=== PATIENT | female | born 1960 | race African-American/Black ===

== ENCOUNTER 2019-01-24 13:16 | Inpatient (IN) | payer BC ==
[2019-01-24 14:49] VITALS: BMI 26.9
--- NOTE | 2019-01-24 17:07 | HP ---
CIWA Score Nausea/Vomitin-No Nausea/No Vomiting Muscle Tremors: None Anxiety: 1-Mildly Anxious Agitation: 1-Slight > Activity Paroxysmal Sweats: No Perspiration Orientation: 0-Oriented Tacttile Disturbances: 1-Very Mild Itch/Numbness Auditory Disturbances: 0-None Visual Disturbances: 0-None Headache: 0-None Present CIWA-Ar Total Score: 3 - Admission Criteria OASAS Guidelines: Admission for Medically Managed Detox: Requires at least one of the followin. CIWA greater than 12 2. Seizures within the past 24 hours 3. Delirium tremens within the past 24 hours 4. Hallucinations within the past 24 hours 5. Acute intervention needed for co occurring medical disorder 6. Acute intervention needed for co occurring psychiatric disorder 7. Severe withdrawal that cannot be handled at a lower level of care (continued vomiting, continued diarrhea, abnormal vital signs) requiring intravenous medication and/or fluids 8. Admitting History and Physical - Past Medical History ...LMP: 09/11/03 - Smoking History Smoking history: Current every day smoker Have you smoked in the past 12 months: Yes Aproximately how many cigarettes per day: 4 Admission ROS [facility] Allergies/Adverse Reactions: Allergies Allergy/AdvReac Type Severity Reaction Status Date / Time No Known Drug Allergies Allergy Verified 01/24/19 14:42 lactose AdvReac heartburn Verified 01/24/19 14:42 NKDA Allergy Uncoded 01/24/19 14:42 History of Present Illness: 58 year old female with tuberculosis exposure, eczema, hypertension a history of alcohol abuse here for detox. Last here in September of this year. No legal trouble Alcohol use: 6 pack of 24 oz beer every day, no liquor. Last drink was this morning (4 drinks); never blacked out from drinking. Drinking for over 40 years. Never had a seizure. Does not become sick when she stops drinks. 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 - Ebola screening Have you traveled outside of the country in the last 21 days: No Have you had contact with anyone from an Ebola affected area: No Patient History - Patient Medical History Hx Anemia: No Hx Asthma: No Hx Chronic Obstructive Pulmonary Disease (COPD): No Hx Cancer: No Hx Cardiac Disorders: No Hx Congestive Heart Failure: No Hx Hypertension: Yes Hx Hypercholesterolemia: No Hx Pacemaker: No HX Cerebrovascular Accident: No Hx Seizures: No Hx Dementia: No Hx Diabetes: No Hx Gastrointestinal Disorders: Yes (acid reflux) Hx Liver Disease: No Hx Genitourinary Disorders: No Hx Sexually Transmitted Disorders: Yes (syphilis) Hx Renal Disease (ESRD): No Hx Thyroid Disease: No Hx Human Immunodeficiency Virus (HIV): No (neg 3 weeks ago) Hx Hepatitis C: No Hx Depression: Yes Hx Suicide Attempt: No Hx Schizophrenia: No - Patient Surgical History Past Surgical History: No Hx Neurologic Surgery: No Hx Cataract Extraction: No Hx Cardiac Surgery: No Hx Lung Surgery: No Hx Breast Surgery: No Hx Breast Biopsy: No Hx Abdominal Surgery: No Hx Appendectomy: No Hx Cholecystectomy: No Hx Genitourinary Surgery: No Hx Section: No Hx Orthopedic Surgery: No Anesthesia Reaction: No - Reproductive History Last Menstrual Period: 09/11/03 - Smoking Cessation Smoking history: Current every day smoker Have you smoked in the past 12 months: Yes Aproximately how many cigarettes per day: 4 Hx Chewing Tobacco Use: No - Substances abused Alcohol Substance route: Oral Frequency: Daily Amount used: 6PACK- 16OZ Age of first use: 14 Date of last use: 01/24/19 Admission Physical Exam S - Vital Signs Vital Signs: Vital Signs - 24 hr 01/24/19 14:41 Temperature 98 F Pulse Rate 98 H Respiratory 18 Rate Blood Pressure 121/77 - Physical General Appearance: Yes: Disheveled HEENTM: Yes: Normal ENT Inspection, Normocephalic Respiratory: Yes: Chest Non-Tender, Lungs Clear, Normal Breath Sounds Neck: Yes: Within Normal Limits Breast: Yes: Within Normal Limits Cardiology: Yes: Regular Rhythm, Regular Rate Abdominal: Yes: Normal Bowel Sounds, Non Tender, Flat, Soft Musculoskeletal: Yes: full range of Motion, Gait Steady Extremities: Yes: Normal Capillary Refill, Normal Inspection, Normal Range of Motion 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
[2019-01-24] MEDS ORDERED: MENTHOL/PHENOL 1 EACH UD MM PRN (17:34)
[2019-01-24] MEDS ORDERED: MAGNESIUM HYDROX 2400MG/30ML ORAL SUSPENSION 30 ML CUP PO PRN (17:34)
[2019-01-24] MEDS ORDERED: MAGNESIUM CITRATE 300 ML BOTTLE PO PRN (17:34)
[2019-01-24] MEDS ORDERED: diazePAM 5 MG TABLET PO PRN (17:34)
[2019-01-24] MEDS ORDERED: BISMUTH SUBSALICYLATE 524 MG/30 ML UD PO PRN (17:34)
[2019-01-24] MEDS ORDERED: IBUPROFEN 400 MG TABLET (FP) PO PRN (17:34)
[2019-01-24] MEDS ORDERED: METHOCARBAMOL 500 MG TABLET PO PRN (17:34)
[2019-01-24] MEDS ORDERED: hydrOXYzine PAMOATE 25 MG CAPSULE (FP) PO PRN (17:34)
[2019-01-24] MEDS ORDERED: MAG HYDROX/AL HYDROX/SIMETH 30 ML UNIT-DOSE CUP PO PRN (17:34)
[2019-01-24] MEDS ORDERED: ACETAMINOPHEN 325 MG TABLET (FP) PO PRN ×2 (17:34)
--- NOTE | 2019-01-24 18:39 | PN ---
Teaching Attending Note Name of Resident: Isaiah Wilson ATTENDING PHYSICIAN STATEMENT I saw and evaluated the patient. I reviewed the resident's note and discussed the case with the resident. I agree with the resident's findings and plan as documented. SUBJECTIVE: 58 year old female here for etoh use , reports 6 x 24 oz beer x 40 years , latest use this morning , symptoms as above . cocaine : latest use 3 weeks ago PMHX : TB exposure , eczema, hypertension , bipolar d/o , SAD on meds claims side-effects from depakote , reports compliance w/ meds, did not bring tobacco : daily Allergies: lactose (intolerant) Family mother 2003 (unknown cause), sister (2003, crack use) , 2 children all healthy, does not see them; from Living Situation: lives in senior care (~2 years) OBJECTIVE: wnwd , symptoms as above , CIWA- 3 Vital Signs - 24 hr 01/24/19 14:41 Temperature 98 F Pulse Rate 98 H Respiratory 18 Rate Blood Pressure 121/77 ASSESSMENT AND PLAN: Alcohol dependence - Valium detox . Psychiatry consult
[2019-01-24] MEDS: ASPIRIN 81 MG CHEWABLE TABLETS PO SCH (18:51)
[2019-01-24] MEDS ORDERED: MELATONIN 5 MG TABLETS PO PRN (22:00)
[2019-01-24] MEDS: THIAMINE HCL 100 MG TABLET (FP) PO SCH (23:01)
[2019-01-24] MEDS: TRIAMCINOLONE ACET 0.1% OINT 15 GM TUBE TP SCH (23:03)
[2019-01-24] MEDS: diazePAM 5 MG TABLET PO SCH (23:03)
[2019-01-25] MEDS: TRIAMCINOLONE ACET 0.1% OINT 15 GM TUBE TP SCH ×3 (05:38→22:00)
[2019-01-25] MEDS: diazePAM 5 MG TABLET PO SCH ×3 (05:39→21:58)
[2019-01-25] MEDS: LISINOPRIL 20 MG TABLET (FP) PO SCH (09:16)
[2019-01-25] MEDS: HYDROCHLOROTHIAZIDE 25 MG TABLET (FP) PO SCH (09:16)
--- NOTE | 2019-01-25 09:32 | CONSULT ---
[facility] Psychiatric Consult - Data Date of interview: 01/25/19 Admission source: Self-referred Identifying data: Ms Ferreira is a 58 years old Black female, mother of 2 children, unemployed receiving SSI, homeless seeking detox treatment for alcohol and cocaine Substance Abuse History: Reports alcohol and cocaine use. Refer to addiction counselor's summary for further information Medical History: Signicant for hypertension, GERD, eczema, history of treatment for PPD+ and syphilis. Smokes 4 cigarettes daily Psychiatric History: Patient came into the office for interview. She said that she did not want to discuss her psychiatric issues with financial writer. She said that is between her and her psychiatrist. She said she had issues with a worker at her housing place and that is what she is willing to discuss. When told that financial writer duty is mostly to assess her psychiatrically, she got up and left the office
[2019-01-25] MEDS ORDERED: PATIENT'S OWN MEDICATION (NON-FORMULARY) (Lisinopril/Hydrochlorothiazide [Lisinopril-Hctz PO SCH (10:00)
[2019-01-25] MEDS: ASPIRIN 81 MG CHEWABLE TABLETS PO SCH (10:18)
[2019-01-25] MEDS: PRENATAL VITAMINS W/ FOLIC ACID TABLET (FP) PO SCH (10:19)
[2019-01-25 12:09] LABS: HEMATOCRIT 43.1 % (32.4-45.2); HEMOGLOBIN 14.2 GM/dL (10.7-15.3); MCH 30.1 pg (25.7-33.7); MEAN CELL VOLUME 91.3 fl (80-96); MEAN PLT VOLUME 7.2 fl (7.5-11.1); PLATELET COUNT 286 K/MM3 (134-434); RBC 4.72 M/mm3 (3.60-5.2); RDW 15.2 % (11.6-15.6); WHITE BLOOD COUNT 7.8 K/mm3 (4.0-10.0)
[2019-01-25 12:28] LABS: ALBUMIN 3.6 g/dl (3.4-5.0); BLOOD UREA NITROGEN 21.3 mg/dL (7-18); CALCIUM 9.1 mg/dL (8.5-10.1); CREATININE 1.1 mg/dL (0.55-1.3); POTASSIUM 4.3 mmol/L (3.5-5.1); TOT PROT 7.4 g/dl (6.4-8.2)
--- NOTE | 2019-01-25 13:58 | PN ---
S CIWA - CIWA Score Nausea/Vomitin-No Nausea/No Vomiting Muscle Tremors: 2 Anxiety: 1-Mildly Anxious Agitation: 1-Slight > Activity Paroxysmal Sweats: No Perspiration Orientation: 0-Oriented Tacttile Disturbances: 0-None Auditory Disturbances: 0-None Visual Disturbances: 0-None Headache: 0-None Present CIWA-Ar Total Score: 4 [facility] Progress Note (SOAP) Subjective: anxiety dry skin Objective: 01/25/19 13:57 Vital Signs Temperature 97.9 F 01/25/19 13:11 Pulse Rate 72 01/25/19 13:11 Respiratory Rate 18 01/25/19 13:11 Blood Pressure 145/78 01/25/19 13:11 O2 Sat by Pulse Oximetry (%) Laboratory Tests 01/25/19 01/25/19 08:20 08:20 WBC 7.8 RBC 4.72 Hgb 14.2 Hct 43.1 MCV 91.3 MCH 30.1 MCHC 33.0 RDW 15.2 Plt Count 286 MPV 7.2 L Sodium 139 Potassium 4.3 Chloride 101 Carbon Dioxide 31 Anion Gap 7 L BUN 21.3 H Creatinine 1.1 Est GFR (CKD-EPI)AfAm 64.09 Est GFR (CKD-EPI)NonAf 55.30 Random Glucose 134 H Calcium 9.1 Total Bilirubin 1.0 AST 31 ALT 20 Alkaline Phosphatase 104 Total Protein 7.4 Albumin 3.6 labs noted aaox3 ambulating no acute distress Assessment: 01/25/19 13:57 mild withdrawals Plan: continue detox increase fluids d/c in am
[2019-01-25] MEDS: THIAMINE HCL 100 MG TABLET (FP) PO SCH (21:58)
[2019-01-26] MEDS: TRIAMCINOLONE ACET 0.1% OINT 15 GM TUBE TP SCH ×3 (05:53→23:57)
[2019-01-26] MEDS ORDERED: diazePAM 5 MG TABLET PO ONE (06:00)
[2019-01-26] MEDS ORDERED: COLLOIDAL OATMEAL 1 BAR EACH TP PRN (06:49)
--- NOTE | 2019-01-26 09:24 | DS ---
[facility] Detox Discharge Summary Admission Date: 01/24/19 Discharge Date: 01/26/19 - History Present History: Alcohol Dependence, Cocaine Dependence - Physical Exam Results Vital Signs: Vital Signs Temperature 97.9 F 01/26/19 07:11 Pulse Rate 69 01/26/19 07:11 Respiratory Rate 18 01/26/19 07:11 Blood Pressure 139/89 01/26/19 07:11 O2 Sat by Pulse Oximetry (%) Pertinent Admission Physical Exam Findings: Vital Signs Temperature 97.9 F 01/26/19 07:11 Pulse Rate 69 01/26/19 07:11 Respiratory Rate 18 01/26/19 07:11 Blood Pressure 139/89 01/26/19 07:11 O2 Sat by Pulse Oximetry (%) Laboratory Tests 01/25/19 01/25/19 01/25/19 08:20 08:20 09:15 WBC 7.8 RBC 4.72 Hgb 14.2 Hct 43.1 MCV 91.3 MCH 30.1 MCHC 33.0 RDW 15.2 Plt Count 286 MPV 7.2 L Sodium 139 Potassium 4.3 Chloride 101 Carbon Dioxide 31 Anion Gap 7 L BUN 21.3 H Creatinine 1.1 Est GFR (CKD-EPI)AfAm 64.09 Est GFR (CKD-EPI)NonAf 55.30 Random Glucose 134 H Calcium 9.1 Total Bilirubin 1.0 AST 31 ALT 20 Alkaline Phosphatase 104 Total Protein 7.4 Albumin 3.6 HIV 1&2 Antibody Screen Negative HIV P24 Antigen Negative pt is feeling better and ready for rehab - Treatment Hospital Course: Detox Protocol Followed, Detoxed Safely, Responded well, Discharged Condition Good, Rehab Referral Accepted Patient has Accepted a Rehab Referral to: pt referred to inpatient rehab [facility] - Medication Discharge Medications: Ambulatory Orders Lisinopril/Hydrochlorothiazide [Lisinopril-Hctz 20-25 mg Tab] 1 each PO DAILY Aspirin [ASA -] 81 mg PO DAILY 01/24/19 Triamcinolone 0.1% Ointment [Aristocort 0.1% Ointment -] 1 applic TP TID - Diagnosis (1) Alcohol induced sleep disorders Current Visit: No Status: Acute (2) Alcohol withdrawal Current Visit: No Status: Acute (3) Alcohol-induced anxiety disorder Current Visit: No Status: Acute (4) Bipolar 1 disorder with moderate nadine Current Visit: No Status: Acute (5) Cocaine dependence Current Visit: No Status: Acute (6) Nicotine dependence Current Visit: No Status: Acute (7) Depression Current Visit: No Status: Chronic (8) Hypertension Current Visit: No Status: Chronic (9) Drug-induced mood disorder Current Visit: No Status: Suspected - AMA Did Patient Leave Against Medical Advice: No
[2019-01-26] MEDS: LISINOPRIL 20 MG TABLET (FP) PO SCH (10:55)
[2019-01-26] MEDS: HYDROCHLOROTHIAZIDE 25 MG TABLET (FP) PO SCH (10:55)
[2019-01-26] MEDS: PRENATAL VITAMINS W/ FOLIC ACID TABLET (FP) PO SCH (10:55)
[2019-01-26] MEDS: ASPIRIN 81 MG CHEWABLE TABLETS PO SCH (10:56)
--- NOTE | 2019-01-26 11:54 | PN ---
[facility] Progress Note Note: pt has high BP 175/99 and will be at risk of relapse if she leave without having an aftercare set up. Pt will be d/c tomorrow and will go to inpatient rehab.
[2019-01-26 18:25] VITALS: TEMP 98.1
[2019-01-26] MEDS: THIAMINE HCL 100 MG TABLET (FP) PO SCH (23:57)
[2019-01-27] MEDS: TRIAMCINOLONE ACET 0.1% OINT 15 GM TUBE TP SCH ×2 (05:53→13:30)
[2019-01-27 09:39] VITALS: BP 166/88; PULSE 69
[2019-01-27] MEDS: HYDROCHLOROTHIAZIDE 25 MG TABLET (FP) PO SCH (10:25)
[2019-01-27] MEDS: ASPIRIN 81 MG CHEWABLE TABLETS PO SCH (10:25)
[2019-01-27] MEDS: PRENATAL VITAMINS W/ FOLIC ACID TABLET (FP) PO SCH (10:25)
[2019-01-27] MEDS: LISINOPRIL 20 MG TABLET (FP) PO SCH (10:25)
--- NOTE | 2019-01-27 13:18 | DS ---
[facility] Detox Discharge Summary Admission Date: 01/24/19 Discharge Date: 01/27/19 - History Present History: Alcohol Dependence - Physical Exam Results Vital Signs: Vital Signs Temperature 98.1 F 01/27/19 09:37 Pulse Rate 69 01/27/19 09:37 Respiratory Rate 18 01/27/19 09:37 Blood Pressure 166/88 01/27/19 09:37 O2 Sat by Pulse Oximetry (%) - Treatment Hospital Course: Detox Protocol Followed, Detoxed Safely, Responded well, Discharged Condition Good, Rehab Referral Accepted - Medication Discharge Medications: Ambulatory Orders Lisinopril/Hydrochlorothiazide [Lisinopril-Hctz 20-25 mg Tab] 1 each PO DAILY Aspirin [ASA -] 81 mg PO DAILY 01/24/19 Triamcinolone 0.1% Ointment [Aristocort 0.1% Ointment -] 1 applic TP TID - Diagnosis (1) Alcohol induced sleep disorders Current Visit: No Status: Acute (2) Alcohol withdrawal Current Visit: No Status: Acute (3) Alcohol-induced anxiety disorder Current Visit: No Status: Acute (4) Bipolar 1 disorder with moderate nadine Current Visit: No Status: Acute (5) Cocaine dependence Current Visit: No Status: Acute (6) Nicotine dependence Current Visit: Yes Status: Acute Qualifiers: Nicotine product type: cigarettes Substance use status: uncomplicated Qualified Code(s): F17.210 - Nicotine dependence, cigarettes, uncomplicated (7) Depression Current Visit: No Status: Chronic (8) Hypertension Current Visit: No Status: Chronic (9) Drug-induced mood disorder Current Visit: No Status: Suspected - AMA Did Patient Leave Against Medical Advice: No
== END 2019-01-27 13:56 | disposition home or self-care (01) | DRG 774 ==
LOC: YASAS 13:16 → Y6N 18:08
PROVIDERS: ADMIT Allergy & Immunology; ATTEND Allergy & Immunology
PROC: HZ2ZZZZ Detoxification Services for Substance Abuse Treatment (ICD-10-PCS; principal; 2019-01-24)
DX: F10.230 Alcohol dependence with withdrawal, uncomplicated (principal); F14.20 Cocaine dependence, uncomplicated; F17.210 Nicotine dependence, cigarettes, uncomplicated; F10.280 Alcohol dependence with alcohol-induced anxiety disorder; F10.282 Alcohol dependence with alcohol-induced sleep disorder; F19.24 Other psychoactive substance dependence with psychoactive substance-induced mood disorder; F32.9 Major depressive disorder, single episode, unspecified; F31.89 Other bipolar disorder; I10 Essential (primary) hypertension; K21.9 Gastro-esophageal reflux disease without esophagitis; L30.9 Dermatitis, unspecified; R76.11 Nonspecific reaction to tuberculin skin test without active tuberculosis; Z86.19 Personal history of other infectious and parasitic diseases; Z91.02 Food additives allergy status
CPT/HCPCS: 36415; 80053; 85027; 86593; 87389

== ENCOUNTER 2022-03-11 12:04 | Inpatient (IN) | payer BC ==
[2022-03-11 13:08] VITALS: BMI 34.4
[2022-03-11] MEDS ORDERED: ACETAMINOPHEN 325 MG TABLET (FP) PO PRN ×2 (15:00)
[2022-03-11] MEDS ORDERED: IBUPROFEN 600 MG TABLET (FP) PO PRN (15:00)
[2022-03-11] MEDS ORDERED: LOPERAMIDE HCL 2 MG CAPSULE PO PRN (15:00)
[2022-03-11] MEDS ORDERED: MAG HYDROX/AL HYDROX/SIMETH 30 ML UNIT-DOSE CUP PO PRN (15:00)
[2022-03-11] MEDS ORDERED: NICOTINE 10 MG CARTRIDGE (INHALER) IH PRN (15:00)
[2022-03-11] MEDS ORDERED: MAGNESIUM HYDROX 2400MG/30ML ORAL SUSPENSION 30 ML CUP PO PRN (15:00)
[2022-03-11] MEDS ORDERED: IBUPROFEN 400 MG TABLET (FP) PO PRN (15:00)
[2022-03-11] MEDS ORDERED: DICYCLOMINE HCL 10 MG CAPSULE PO PRN (15:00)
[2022-03-11] MEDS ORDERED: NALOXONE HCL (KLOXXADO) 8 MG SPRAY NS PRN (15:00)
[2022-03-11] MEDS ORDERED: BISMUTH SUBSALICYLATE 524 MG/30 ML PO PRN (15:00)
[2022-03-11] MEDS ORDERED: POLYETHYLENE GLYCOL (HEALTHYLAX) 3350 17 GM PACKET PO PRN (15:00)
[2022-03-11] MEDS ORDERED: chlordiazePOXIDE HCL 25 MG CAPSULE PO PRN (15:00)
[2022-03-11 16:47] LABS: HEMATOCRIT 40.7 % (32.4-45.2); HEMOGLOBIN 13.4 GM/dL (10.7-15.3); MCH 28.6 pg (25.7-33.7); MCHC 32.9 g/dl (32.0-36.0); MEAN PLT VOLUME 7.4 fl (7.5-11.1); PLATELET COUNT 291 10^3/uL (134-434); RBC 4.68 M/mm3 (3.60-5.2); RDW 14.9 % (11.6-15.6); WHITE BLOOD COUNT 7.3 K/mm3 (4.0-10.0)
[2022-03-11 16:49] LABS: CALCIUM 9.2 mg/dL (8.5-10.1)
[2022-03-11 16:50] LABS: ALBUMIN 3.5 g/dl (3.4-5.0); BLOOD UREA NITROGEN 24.5 mg/dL (7-18)
[2022-03-11 16:53] LABS: CREATININE 1.1 mg/dL (0.55-1.3)
[2022-03-11 16:54] LABS: TOT PROT 7.1 g/dl (6.4-8.2)
[2022-03-11] MEDS: PRENATAL VITAMINS W/ FOLIC ACID TABLET (FP) PO SCH (17:22)
[2022-03-11] MEDS: chlordiazePOXIDE HCL 25 MG CAPSULE PO SCH ×2 (17:24→22:54)
[2022-03-11] MEDS: MELATONIN 5 MG TABLETS PO SCH (22:54)
[2022-03-11] MEDS: METHOCARBAMOL 500 MG TABLET PO PRN (22:54)
[2022-03-11] MEDS: THIAMINE HCL 100 MG TABLET (FP) PO SCH (22:54)
[2022-03-12] MEDS: chlordiazePOXIDE HCL 25 MG CAPSULE PO SCH ×3 (05:40→17:38)
[2022-03-12] MEDS: ONDANSETRON *ODT* 4 MG TABLET SL PRN ×2 (05:41→13:01)
[2022-03-12] MEDS: METHOCARBAMOL 500 MG TABLET PO PRN (10:05)
[2022-03-12] MEDS: PRENATAL VITAMINS W/ FOLIC ACID TABLET (FP) PO SCH (10:05)
[2022-03-12] MEDS: COLLOIDAL OATMEAL 1 BAR EACH TP PRN (12:25)
[2022-03-13] MEDS: MELATONIN 5 MG TABLETS PO SCH ×2 (00:14→22:23)
[2022-03-13] MEDS: THIAMINE HCL 100 MG TABLET (FP) PO SCH ×2 (00:14→22:22)
[2022-03-13] MEDS: chlordiazePOXIDE HCL 25 MG CAPSULE PO SCH ×4 (00:15→17:35)
[2022-03-13] MEDS: ASPIRIN 81 MG CHEWABLE TABLETS PO SCH (10:35)
[2022-03-13] MEDS: LISINOPRIL 20 MG TABLET PO SCH (10:35)
[2022-03-13] MEDS: PRENATAL VITAMINS W/ FOLIC ACID TABLET (FP) PO SCH (10:35)
[2022-03-13] MEDS: HYDROCHLOROTHIAZIDE 12.5 MG CAPSULE (FP) PO SCH (10:51)
[2022-03-13] MEDS: SELENIUM SULFIDE 2.25% 180 ML SHAMPOO TP SCH (12:19)
[2022-03-13] MEDS: METHOCARBAMOL 500 MG TABLET PO PRN ×2 (12:51→22:24)
[2022-03-13] MEDS: hydrOXYzine PAMOATE 25 MG CAPSULE (FP) PO PRN (12:51)
[2022-03-13] MEDS: TRIAMCINOLONE ACET 0.1% OINT 15 GM TUBE TP SCH ×2 (14:53→22:23)
[2022-03-13] MEDS ORDERED: cloNIDine HCL 0.1 MG TABLET PO ONE (22:00)
[2022-03-14] MEDS ORDERED: chlordiazePOXIDE HCL 10 MG CAPSULE PO PRN
[2022-03-14] MEDS: chlordiazePOXIDE HCL 25 MG CAPSULE PO SCH (00:14)
[2022-03-14] MEDS: chlordiazePOXIDE HCL 10 MG CAPSULE PO SCH ×4 (06:13→22:18)
[2022-03-14] MEDS: TRIAMCINOLONE ACET 0.1% OINT 15 GM TUBE TP SCH ×3 (06:14→22:18)
[2022-03-14] MEDS: PRENATAL VITAMINS W/ FOLIC ACID TABLET (FP) PO SCH (10:29)
[2022-03-14] MEDS: hydrOXYzine PAMOATE 25 MG CAPSULE (FP) PO PRN (10:29)
[2022-03-14] MEDS: ASPIRIN 81 MG CHEWABLE TABLETS PO SCH (10:29)
[2022-03-14] MEDS: HYDROCHLOROTHIAZIDE 12.5 MG CAPSULE (FP) PO SCH (10:29)
[2022-03-14] MEDS: LISINOPRIL 20 MG TABLET PO SCH (10:29)
[2022-03-14] MEDS: METHOCARBAMOL 500 MG TABLET PO PRN (10:29)
[2022-03-14] MEDS: SELENIUM SULFIDE 2.25% 180 ML SHAMPOO TP SCH (10:32)
[2022-03-14] MEDS: BENZOCAINE/MENTHOL (CHLORASEPTIC ) LOZENGE MM PRN (19:50)
[2022-03-14] MEDS: THIAMINE HCL 100 MG TABLET (FP) PO SCH (22:18)
[2022-03-14] MEDS: MELATONIN 5 MG TABLETS PO SCH (22:18)
[2022-03-15] MEDS: chlordiazePOXIDE HCL 10 MG CAPSULE PO SCH ×2 (05:23→17:51)
[2022-03-15] MEDS: hydrOXYzine PAMOATE 25 MG CAPSULE (FP) PO PRN ×2 (05:23→23:36)
[2022-03-15] MEDS: METHOCARBAMOL 500 MG TABLET PO PRN (05:23)
[2022-03-15] MEDS: TRIAMCINOLONE ACET 0.1% OINT 15 GM TUBE TP SCH ×3 (05:39→23:28)
[2022-03-15] MEDS: LISINOPRIL 20 MG TABLET PO SCH (10:12)
[2022-03-15] MEDS: PRENATAL VITAMINS W/ FOLIC ACID TABLET (FP) PO SCH (10:12)
[2022-03-15] MEDS: ASPIRIN 81 MG CHEWABLE TABLETS PO SCH (10:12)
[2022-03-15] MEDS: HYDROCHLOROTHIAZIDE 12.5 MG CAPSULE (FP) PO SCH (10:12)
[2022-03-15] MEDS: SELENIUM SULFIDE 2.25% 180 ML SHAMPOO TP SCH (10:13)
[2022-03-15] MEDS: BENZOCAINE/MENTHOL (CHLORASEPTIC ) LOZENGE MM PRN (10:14)
[2022-03-15] MEDS: COLLOIDAL OATMEAL 1 BAR EACH TP PRN (13:57)
[2022-03-15] MEDS: MELATONIN 5 MG TABLETS PO SCH (23:28)
[2022-03-15] MEDS: THIAMINE HCL 100 MG TABLET (FP) PO SCH (23:28)
[2022-03-16] MEDS ORDERED: chlordiazePOXIDE HCL 10 MG CAPSULE PO ONE (05:00)
[2022-03-16] MEDS: TRIAMCINOLONE ACET 0.1% OINT 15 GM TUBE TP SCH (05:42)
[2022-03-16 06:13] VITALS: BP 129/71; PULSE 97; RESP 18; TEMP 97.1
== END 2022-03-16 09:13 | disposition home or self-care (01) | DRG 774 ==
LOC: YASAS 12:04 → Y6N 15:06
PROVIDERS: ADMIT Allergy & Immunology; ATTEND Surgery
PROC: HZ2ZZZZ Detoxification Services for Substance Abuse Treatment (ICD-10-PCS; principal; 2022-03-11)
DX: F10.230 Alcohol dependence with withdrawal, uncomplicated (principal); F14.20 Cocaine dependence, uncomplicated; F17.210 Nicotine dependence, cigarettes, uncomplicated; F19.282 Other psychoactive substance dependence with psychoactive substance-induced sleep disorder; F25.9 Schizoaffective disorder, unspecified; E78.5 Hyperlipidemia, unspecified; I10 Essential (primary) hypertension; K21.9 Gastro-esophageal reflux disease without esophagitis; L30.9 Dermatitis, unspecified; L21.9 Seborrheic dermatitis, unspecified; M19.071 Primary osteoarthritis, right ankle and foot; M25.471 Effusion, right ankle; R05.8 Other specified cough; Z62.810 Personal history of physical and sexual abuse in childhood; Z86.19 Personal history of other infectious and parasitic diseases; Z91.011 Allergy to milk products
CPT/HCPCS: 36415; 80053; 85027; 86593; 86780; C9803-CS; Q0162; U0003; U0005

== ENCOUNTER 2023-11-25 10:38 | Inpatient (IN) | payer BC ==
[2023-11-25 11:05] VITALS: BMI 27.1
[2023-11-25] MEDS ORDERED: LISINOPRIL 10 MG TABLET ONE (11:18)
[2023-11-25] MEDS ORDERED: HYDROCHLOROTHIAZIDE 12.5 MG CAPSULE (FP) ONE (11:19)
[2023-11-25] MEDS: LISINOPRIL 20 MG TABLET PO ONE (11:22)
[2023-11-25] MEDS: HYDROCHLOROTHIAZIDE 25 MG TABLET (FP) PO ONE (11:22)
[2023-11-25] MEDS ORDERED: NALOXONE HCL 0.4 MG/ML VIAL IM PRN (11:27)
[2023-11-25] MEDS ORDERED: MAG HYDROX/AL HYDROX/SIMETH 30 ML UNIT-DOSE CUP PO PRN (11:27)
[2023-11-25] MEDS ORDERED: NALOXONE (NARCAN) HCL 4 MG/0.1 ML SPRAY NS PRN (11:27)
[2023-11-25] MEDS ORDERED: MAGNESIUM HYDROX 2400MG/30ML ORAL SUSPENSION 30 ML CUP PO PRN (11:27)
[2023-11-25] MEDS ORDERED: LOPERAMIDE HCL 2 MG CAPSULE PO PRN (11:27)
[2023-11-25] MEDS ORDERED: DICYCLOMINE HCL 10 MG CAPSULE PO PRN (11:27)
[2023-11-25] MEDS ORDERED: ACETAMINOPHEN 325 MG TABLET (FP) PO PRN (11:27)
[2023-11-25] MEDS ORDERED: hydrOXYzine PAMOATE 25 MG CAPSULE (FP) PO PRN (11:27)
[2023-11-25] MEDS ORDERED: IBUPROFEN 400 MG TABLET (FP) PO PRN (11:27)
[2023-11-25] MEDS ORDERED: BISMUTH SUBSALICYLATE 524 MG/30 ML PO PRN (11:27)
[2023-11-25] MEDS ORDERED: IBUPROFEN 600 MG TABLET (FP) PO PRN (11:27)
[2023-11-25] MEDS ORDERED: POLYETHYLENE GLYCOL (HEALTHYLAX) 3350 17 GM PACKET PO PRN (11:27)
[2023-11-25] MEDS ORDERED: METHOCARBAMOL 500 MG TABLET PO PRN (11:27)
[2023-11-25] MEDS ORDERED: chlordiazePOXIDE HCL 25 MG CAPSULE PO PRN (11:33)
[2023-11-25] MEDS ORDERED: ALBUTEROL SO4 HFA INHALER IH PRN (11:37)
[2023-11-25] MEDS: METHYL SALICYLATE/MENTHOL 30 GM TUBE TP SCH (12:52)
[2023-11-25] MEDS: TRIAMCINOLONE ACET 0.1% OINT 15 GM TUBE TP SCH (13:00)
[2023-11-25] MEDS: ACAMPROSATE CALCIUM 333 MG TABLET.DR PO SCH (13:00)
[2023-11-25] MEDS: chlordiazePOXIDE HCL 25 MG CAPSULE PO SCH (17:09)
[2023-11-25] MEDS: amLODIPine BESYLATE 10 MG TABLET (FP) PO ONE (17:59)
[2023-11-25] MEDS: BENZOCAINE/MENTHOL (CHLORASEPTIC ) LOZENGE MM PRN (19:00)
[2023-11-25] MEDS: guaiFENesin 600 MG TABLET.ER (FP) PO PRN (19:00)
[2023-11-25] MEDS: LISINOPRIL 10 MG TABLET PO ONE (20:26)
[2023-11-25] MEDS: THIAMINE 100 MG TABLET PO SCH (22:52)
[2023-11-25] MEDS: MELATONIN 5 MG TABLETS PO SCH (22:52)
[2023-11-26] MEDS: BENZONATATE 200 MG CAPSULE PO PRN (06:06)
[2023-11-26 10:27] LABS: HEMATOCRIT 43.5 % (32.4-45.2); HEMOGLOBIN 14.6 GM/dL (10.7-15.3); MCH 29.3 pg (25.7-33.7); MCHC 33.5 g/dl (32.0-36.0); MEAN CELL VOLUME 87.3 fl (80-96); MEAN PLT VOLUME 7.9 fl (7.5-11.1); PLATELET COUNT 266 10^3/uL (134-434); RBC 4.97 M/mm3 (3.60-5.2); RDW 15.7 % (11.6-15.6); WHITE BLOOD COUNT 5.3 K/mm3 (4.0-10.0)
[2023-11-26] MEDS: ASPIRIN 81 MG CHEWABLE TABLETS PO SCH (10:34)
[2023-11-26] MEDS: LISINOPRIL 20 MG TABLET PO SCH (10:34)
[2023-11-26] MEDS: PRENATAL VITAMINS W/ FOLIC ACID TABLET (FP) PO SCH (10:35)
[2023-11-26] MEDS: TRIAMTERENE AND HCTZ - 37.5 MG/25 MG CAPSULE PO SCH (10:35)
[2023-11-26 10:47] LABS: POTASSIUM 3.4 mmol/L (3.5-5.1)
[2023-11-26 10:59] LABS: CALCIUM 9.4 mg/dL (8.5-10.1)
[2023-11-26 11:00] LABS: ALBUMIN 3.5 g/dl (3.4-5.0)
[2023-11-26 11:03] LABS: BLOOD UREA NITROGEN 17.4 mg/dL (7-18); CREATININE 1.2 mg/dL (0.55-1.3)
[2023-11-26 11:04] LABS: TOT PROT 7.2 g/dl (6.4-8.2)
[2023-11-26] MEDS: POTASSIUM CHLORIDE ORAL LIQUID 20 MEQ/15 ML PO ONE (12:57)
[2023-11-26 13:33] LABS: HIV INTERPRETATION NEGATIVE (NEGATIVE)
[2023-11-26] MEDS: POTASSIUM CHLORIDE TABS 20 MEQ TABLET.ER (FP) PO SCH (14:25)
[2023-11-26] MEDS: guaiFENesin 200 MG/10 ML 10 ML UNIT-DOSE CUPS PO PRN (18:27)
[2023-11-27] MEDS: chlordiazePOXIDE HCL 25 MG CAPSULE PO SCH (06:00)
[2023-11-27] MEDS ORDERED: DOCUSATE SODIUM 100 MG CAPSULE (FP) PO PRN (13:29)
[2023-11-27] MEDS: guaiFENesin 600 MG TABLET.ER (FP) PO PRN (13:52)
[2023-11-27] MEDS: LIDOCAINE 4% PATCH TP SCH (13:52)
[2023-11-27] MEDS: ONDANSETRON *ODT* 4 MG TABLET SL PRN (21:23)
[2023-11-27] MEDS: MELATONIN 5 MG TABLETS PO PRN (22:32)
[2023-11-27] MEDS: LIDOCAINE PATCH REMOVAL MC SCH (22:43)
[2023-11-28] MEDS ORDERED: chlordiazePOXIDE HCL 10 MG CAPSULE PO PRN
[2023-11-28] MEDS: chlordiazePOXIDE HCL 10 MG CAPSULE PO SCH (05:11)
[2023-11-29] MEDS: chlordiazePOXIDE HCL 10 MG CAPSULE PO SCH (05:35)
[2023-11-29 17:00] VITALS: BP 155/79; PULSE 89; RESP 18; TEMP 97.7
[2023-11-30] MEDS ORDERED: chlordiazePOXIDE HCL 10 MG CAPSULE PO ONE (05:00)
== END 2023-11-29 17:20 | disposition home or self-care (01) | DRG 775 ==
LOC: YASAS 10:38 → Y3N 11:46
PROVIDERS: ADMIT Allergy & Immunology; ATTEND Psychiatry & Neurology Pain Medicine
PROC: HZ2ZZZZ Detoxification Services for Substance Abuse Treatment (ICD-10-PCS; principal; 2023-11-25)
DX: F10.230 Alcohol dependence with withdrawal, uncomplicated (principal); F10.282 Alcohol dependence with alcohol-induced sleep disorder; F12.20 Cannabis dependence, uncomplicated; F17.210 Nicotine dependence, cigarettes, uncomplicated; F25.9 Schizoaffective disorder, unspecified; F19.982 Other psychoactive substance use, unspecified with psychoactive substance-induced sleep disorder; F19.94 Other psychoactive substance use, unspecified with psychoactive substance-induced mood disorder; I10 Essential (primary) hypertension; E78.5 Hyperlipidemia, unspecified; K21.9 Gastro-esophageal reflux disease without esophagitis; L30.9 Dermatitis, unspecified; M54.59 Other low back pain; G89.29 Other chronic pain
CPT/HCPCS: 36415; 71045-TC-FY; 80053; 80305; 80307; 84132; 85027; 86593; 86780; 86803; 87389; 93005; 93010; Q0162